=== PATIENT | male | born 1990 | race Caucasian/White ===

== ENCOUNTER 2017-11-03 08:45 | Emergency (ER) | payer MEDICAID ==
[~2017-11-03] VITALS: Ht 188 cm; Wt 73.5 kg
[2017-11-03 10:31] VITALS: BP 121/73
== END 2017-11-03 10:33 | disposition home or self-care (01) ==
LOC: ER 08:47
DX: R21 Rash and other nonspecific skin eruption (principal); Z88.1 Allergy status to other antibiotic agents; Z91.010 Allergy to peanuts
CPT/HCPCS: 99281; 99282

== ENCOUNTER → 2018-05-18 | Emergency (ER) | payer MEDICAID ==
[~2018-05-18] VITALS: Ht 190.5 cm; Wt 78.0 kg
[2018-05-18 22:25] VITALS: BP 126/62
== END | disposition home or self-care (01) ==
LOC: ER 20:32
DX: M25.562 Pain in left knee (principal); F17.200 Nicotine dependence, unspecified, uncomplicated; Z88.1 Allergy status to other antibiotic agents
CPT/HCPCS: 73564; 99284